=== PATIENT | female | born 1990 | race Caucasian/White ===

== ENCOUNTER 2016-09-11 08:03 | Emergency (ER) | payer BC ==
[2016-09-11] MEDS ORDERED: ACETAMINOPHEN 500 MG TABLET (FP) PO ONE (08:18)
[2016-09-11 08:20] VITALS: BP 124/81; PULSE 60; TEMP 97.9; BMI 30.9
--- NOTE | 2016-09-11 08:23 | PDOC ---
History of Present Illness - General Chief Complaint: Injury Stated Complaint: FELL IN A HOLE IN STREET TWISTED LEFT ANKLE Time Seen by Provider: 09/11/16 08:18 History Source: Patient, Old Records Exam Limitations: No Limitations - History of Present Illness Initial Comments: 09/11/16 08:20 26-year-old female with no significant past medical history presents the emergency Department with complaints of left ankle and right elbow pain status post fall while walking down the street and stepped into a pothole. The patient states that she fell forward. She did not strike her head or lose consciousness. She denies neck pain chest pain and abdominal pain. The patient was able to bear a small amount of weight on her left lower extremity/left foot immediately following the fall. However, she states that she is no longer able to bear weight on the extremity and there is a lot of pain in the lateral ankle region with movement. Past History - Travel Traveled outside of the country in the last 30 days: No Close contact w/someone who was outside of country & ill: No - Past Medical History Allergies/Adverse Reactions: Allergies Allergy/AdvReac Type Severity Reaction Status Date / Time SHELLFISH Allergy Intermediate Rash Uncoded 09/11/16 08:06 Home Medications: Ambulatory Orders Norethindrone-E.estradiol-Iron [Taytulla 1 mg-20 Mcg Capsule] 1 each PO DAILY Review of Systems - Review of Systems Able to Perform ROS?: Yes Is the patient limited Kyrgyz proficient: No Constitutional: No: Symptoms Reported HEENTM: No: Symptoms Reported, Dental Problems Cardiac (ROS): No: Symptoms Reported ABD/GI: No: Symptoms Reported : No: Symptoms Reported Musculoskeletal: Yes: Symptoms Reported, See HPI Integumentary: No: Symptoms Reported Neurological: No: Symptoms reported *Physical Exam - Physical Exam Comments: 09/11/16 08:21 GENERAL: Well developed, well nourished. Awake and alert. No acute distress. HEENT: Normocephalic, atraumatic. PERRLA, EOMI. No conjunctival pallor. Sclera are non- icteric. Moist mucous membranes. Oropharynx is clear. NECK: Supple. Full ROM. No JVD. No lymphadenopathy. The is no c-spine or paraspinal tenderness, bony step-off or crepitus. CARDIOVASCULAR: Regular rate and rhythm. No murmurs, rubs, or gallops. Distal pulses are 2+ and symmetric. PULMONARY: No evidence of respiratory distress. Lungs clear to auscultation bilaterally. No wheezing, rales or rhonchi. ABDOMINAL: Soft. Non-tender. Non-distended. No rebound or guarding. No organomegaly. Normoactive bowel sounds. MUSCULOSKELETAL Normal range of motion at all joints. No bony deformities or tenderness. No CVA tenderness. EXTREMITIES: There is swelling of the left lateral malleolar region with tenderness to palpation. Sensory and motor exams are intact. There is a 1 x 1 cm abrasion to the right knee. The right elbow has a 1 cm laceration that appears to be clean, with minimal active bleeding. There is no bony tenderness. SKIN: Warm and dry. Normal capillary refill. No rashes. No jaundice. NEUROLOGICAL: Alert, awake, appropriate. Cranial nerves 2-12 intact. Grossly non-focal exam. PSYCHIATRIC: Cooperative. Good eye contact. Appropriate mood and affect. Procedures - Laceration/Wound Repair Right Elbow Wound Length: to 2.5 cm Wound Explored: clean Wound's Depth, Shape: superficial Irrigated w/ Saline: Yes Betadine Prep: Yes Anesthesia: 1% Lidocaine Amount of Anesthetic (ccs): 4 Wound Debrided: minimal Wound Repaired With: Sutures Suture Size/Type: 4:0, nylon Number of Sutures: 4 Layer Closure: No Sterile Dressing Applied: Yes Medical Decision Making - Medical Decision Making 09/11/16 08:23 26-year-old female with left ankle swelling and pain and right elbow laceration following a mechanical fall prior to arrival. Differential diagnosis includes but is not limited to: Fracture, contusion, sprain. Plan: 1. Urine 2. Plain films of the left foot and ankle and right elbow 3. Tetanus status 4. Laceration repair 5. Pain management 6. Observe and reevaluate 7. Orthopedic consultation as needed pending radiographic imaging 09/11/16 10:14 Addendum: Plain films were reviewed and are negative for any acute fracture or dislocation. The wound has been sutured (see procedure note) under my direct supervision. Discharge instructions have been discussed with the patient. She has an Demetris wrap on her left ankle and is being given crutches for ambulatory assistance. The patient was instructed to return to the emergency department or her primary care physician within 7-10 days for suture removal. *DC/Admit/Observation/Transfer Diagnosis at time of Disposition: Contusion of right knee, Left ankle sprain, Laceration of right elbow, Fall from slip, trip, or stumble - Discharge Dispostion Disposition: HOME Condition at time of disposition: Stable Admit: No - Patient Instructions Printed Discharge Instructions: DI for Laceration Repair, DI for Ankle Sprain Additional Instructions: You have sutures in your right elbow that should be removed in 7-10 days. He may apply bacitracin ointment to the laceration twice daily. Keep the wound clean and dry for the next 24 hours then you may get it wet but please do not immerse in water with beating or swimming. If the wound appears red, swollen, purulent drainage than these are signs of infection and you must return to the emergency department immediately. You may take Tylenol or ibuprofen as needed for pain for your elbow and for your ankle which is sprained. You may use crutches for ambulatory assistance you may bear weight on the extremity as tolerated. He may follow up with an orthopedist or the emergency department within the next 2 weeks if your left ankle pain persists, worsen, or new symptoms arise.
[2016-09-11] MEDS ORDERED: DIPHTH,PERTUSS(ACELL),TET 0.5 ML DISP.SYRIN IM ONE (08:26)
[2016-09-11] MEDS ORDERED: ACETAMINOPHEN 325 MG TABLET (FP) PO ONE (08:26)
== END 2016-09-11 10:26 | disposition home or self-care (01) ==
LOC: FER 08:03
PROC: 0HQDXZZ Repair Right Lower Arm Skin, External Approach (ICD-10-PCS; principal; 2016-09-11)
DX: S51.011A Laceration without foreign body of right elbow, initial encounter (principal); S80.01XA Contusion of right knee, initial encounter; S93.402A Sprain of unspecified ligament of left ankle, initial encounter; W17.2XXA Fall into hole, initial encounter; Y93.89 Activity, other specified; Y92.410 Unspecified street and highway as the place of occurrence of the external cause
CPT/HCPCS: 73070-TC-RT; 73610-TC-LT; 73630-TC-LT; 84703; 90715; 99283-25